=== PATIENT | female | born 1965 | race Caucasian/White ===

== ENCOUNTER 2020-10-12 12:06 | Outpatient (CLI) | payer BC ==
[~2020-10-12 12:06] MED LIST: ANTIBIOTIC PO; CITA40TA12 PO
[2020-10-12] MEDS ORDERED: NALOXONE 1 MG/ML, 2ML ONE (12:45)
[2020-10-12] MEDS ORDERED: FLUMAZENIL 0.1 MG/1 ML, 5ML ONE (12:45)
[2020-10-12] MEDS ORDERED: MIDAZOLAM 1 MG/ML, 5ML ONE (12:45)
[2020-10-12] MEDS ORDERED: FENTANYL PF 100 MCG/2ML ONE (12:45)
[2020-10-12] MEDS ORDERED: GADOTERATE 10 MMOL/20 ML VIAL ONE (13:28)
== END 2020-10-12 23:59 | disposition home or self-care (01) ==
LOC: RAD 12:06
PROVIDERS: ATTEND Specialist
DX: G95.9 Disease of spinal cord, unspecified (principal); M50.322 Other cervical disc degeneration at C5-C6 level; I10 Essential (primary) hypertension; Z79.899 Other long term (current) drug therapy; Z92.3 Personal history of irradiation; Z98.890 Other specified postprocedural states
CPT/HCPCS: 70553; 72156; 99156; 99157; A9575; J2250; J3010; J2310